=== PATIENT | female | born 1985 | race Caucasian/White ===

== ENCOUNTER → 2016-12-20 | Outpatient (CLI) | payer BC ==
[~2016-12-20] MED LIST: APNO TOP; DERMOPLAST SPRA56 GM TOP; LANSINOH7 GM TOP; PERCOCET 5-3251 EACH PO; PRENATAL 1+1)(P1 TAB PO; TUCKS1 EACH TOP
== END | disposition disaster alternative care site (69) ==
LOC: GLAB 12-16 08:00
DX: Z36 Encounter for antenatal screening of mother (principal)

== ENCOUNTER → 2017-04-11 | Outpatient (CLI) | payer BC | END | disposition disaster alternative care site (69) | LOC: GLAB 07:57 | DX: Z36 Encounter for antenatal screening of mother (principal) ==